=== PATIENT | male | born 1940 | race African-American/Black ===

== ENCOUNTER → 2021-07-16 | Outpatient (CLI) | payer MEDICARE ==
[2021-07-16 19:22] LABS: African American GFR (CKD) 73.6 (60.0-200.0); Albumin 4.3 g/dL (3.80-4.90); Albumin/Globulin Ratio 1.79 (1.60-3.17); Anion Gap 8.1 mmol/L (4.00-12.00); BUN/Creat Ratio 11.82 Ratio (12.00-20.00); Calcium 9.4 mg/dL (8.7-10.3); Carbon Dioxide 29.9 mmol/L (21.6-31.8); Chol/HDL Ratio 4.38; Globulin 2.4 g/dL (1.6-3.3); LDL Cholesterol,Calculated 60.6 mg/dL (0.0-131.0); Non-African American GFR(CKD) 63.5 (60.0-200.0); Potassium 4.1 mmol/L (3.5-5.5); Total Bilirubin 0.7 mg/dL (0.3-1.2); Total Protein 6.7 g/dL (6.2-8.2); VLDL Calculation 37.4 mg/dL (5.00-40.00)
[2021-07-16 21:35] LABS: Urine Creatinine 226.8 mg/dL
[2021-07-16 23:48] LABS: Hemoglobin A1C 7.6 % (4.0-6.0)
== END | disposition home or self-care (01) ==
LOC: LABWHC1 11:37
PROVIDERS: ATTEND Internal Medicine Interventional Cardiology
DX: E11.65 Type 2 diabetes mellitus with hyperglycemia (principal)
CPT/HCPCS: 36415; 80053; 80061; 82043; 82570; 83036; 84443

== ENCOUNTER → 2021-09-23 | Outpatient (CLI) | payer MEDICARE ==
[2021-09-23 10:59] LABS: HCT 33.6 % (39.6-50.0); HGB 10.5 g/dL (13.0-17.0); MCH 22.2 pg (27.0-32.0); MCHC 31.3 g/dL (32.0-37.0); MCV 71.2 fL (80.0-97.0); Mean Platelet Volume 10.3 fL (9.5-12.2); Platelet Count 267 X 10*3/uL (140-440); RBC 4.72 X 10*6/uL (4.40-5.60); RDW 16.1 % (11.5-14.5); WBC 11.42 X 10*3/uL (4.50-10.00)
[2021-09-23 11:27] LABS: Basophils # (A) 0.05 X 10*3/uL (0.00-0.10); Basophils % (A) 0.4 %; Eosinophils # (A) 0.45 X 10*3/uL (0.04-0.35); Eosinophils % (A) 3.9 %; Lymphocytes # (A) 2.35 X 10*3/uL (0.90-5.00); Lymphocytes % (A) 20.6 %; Monocytes # (A) 0.73 X 10*3/uL (0.20-1.00); Monocytes % (A) 6.4 %; Neutrophils # (A) 7.79 X 10*3/uL (1.80-7.70); Neutrophils % (A) 68.3 %
[2021-09-23 11:28] LABS: Microcytosis (M) 2+
[2021-09-23 14:46] LABS: Erythrocyte Sedimentation Rate 26 mm/Hr (0-20)
== END | disposition home or self-care (01) ==
LOC: LABWHC1 07:38
PROVIDERS: ATTEND Orthopaedic Surgery
DX: T84.84XA Pain due to internal orthopedic prosthetic devices, implants and grafts, initial encounter (principal); Z96.651 Presence of right artificial knee joint
CPT/HCPCS: 36415; 85025; 85652; 86140

== ENCOUNTER → 2021-09-23 | Outpatient (CLI) | payer MEDICARE ==
--- NOTE | 2021-09-23 13:42 | NM ---
EXAMINATION TYPE: NM bone 3 phase DATE OF EXAM: 09/23/2021 COMPARISON: Outside bilateral knee x-rays one week ago HISTORY: History of right knee arthroplasty 5 years ago with persistent pain. Triple phase bone scintigraphy was performed following the injection of 26.3 mCi Tc 99m MDP. Immedia te images and 5.5 hours post injection images acquired. Imaging performed of the bilateral knees. FINDINGS: Arterial phase imaging shows no increased radiotracer uptake through the right knee versus the opposi te left knee. Arterial and soft tissue phase images show lucency from prior axis. Slight subtle incre ased uptake along medial aspect of the distal femoral prosthesis anteriorly is seen on soft tissue ph ase images. Delayed phased images show no significant increased radiotracer uptake at this level. The re is symmetric increased radiotracer uptake medial aspect of the proximal tibia bilaterally presumed product of degenerative change. IMPRESSION: No suspicious increased three-phase radiotracer uptake surrounding the right knee prosthe sis to suggest infection or other suspicious abnormality. No scintigraphic evidence of osseous metastatic disease.
== END | disposition home or self-care (01) ==
LOC: RADNMMAIN 07:00
PROVIDERS: ATTEND Orthopaedic Surgery
DX: T84.84XA Pain due to internal orthopedic prosthetic devices, implants and grafts, initial encounter (principal)
CPT/HCPCS: 78315; A9503